=== PATIENT | female | born 1950 | race Caucasian/White ===

== ENCOUNTER 2017-09-10 10:30 | Inpatient (IN) | payer OTHER, MEDICARE ==
[~2017-09-10] VITALS: Ht 160 cm; Wt 0.7 kg
--- NOTE | ~2017-09-10 | H ---
[facility] [place] [address] HISTORY AND PHYSICAL Name: STEPAN GUTIERREZ Room #: 504-2 ADM IN M.R.#: [id number] Admission: 09/10/17 Attend Phys: Gerardo Agosto MD Discharge: Date of : 50 Report #: [id number] THIS REPORT FOR: //name// CC: Gerardo Zheng DATE OF SERVICE: 09/10/2017 HISTORY OF PRESENT ILLNESS: This is a 66-year-old female who has now been admitted to inpatient rehabilitation. She originally presented to [facility]. When she was giving herself a bath at home, lifted her right leg, heard a pop and had sudden severe pain in the right thigh down. She was unable to ambulate that prompted her to the ER, where she was diagnosed with a right femur fracture. She was seen by Orthopedic Surgery and underwent an ORIF on 09/04/2017. She has no weightbearing to that right leg. 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 Postoperatively, she had acute blood loss anemia and did require 5 units of packed red blood cells. She was also noted to have fever up to 101. She reports having sets of blood cultures done. She also had left lower extremity pain and a small increase in edema. She underwent a venous Doppler, which was negative for DVT. She was discharged and now been admitted to inpatient rehab for further therapies prior to returning back to her home. PAST MEDICAL HISTORY: Malignant small cell cancer, malignant neoplasm of the uterus, Meyer syndrome, liver metastasis. PAST SURGICAL HISTORY: , history of hysterectomy, colonoscopy, ventral hernia repair, Port-A-Cath placement, tonsillectomy as a child. ALLERGIES: LATEX, SULFA, GABAPENTIN. CURRENT MEDICATIONS: Amitriptyline 25 mg at bedtime as needed. Tylenol 500 mg every 6 hours as needed. Yudelka 100 mg daily. Lactobacillus 1 capsule twice a day. Omeprazole 20 mg daily. Phenergan 12.5 mg every 6 hours as needed. Vitamin B daily. Multivitamin daily. MiraLax twice a day as needed. Morphine 15 mg every 2 hours as needed, iron 325 three times a day, vitamin D 50,000 units weekly, Lovenox 40 mg subcutaneous twice a day for 9 days. SOCIAL HISTORY: Nonsmoker, nondrinker, no illicit drug use. She lives in a house with her ijrshfw-zl-wao. There are stairs to enter. She utilized a roller walker premorbidly. REVIEW OF SYSTEMS: CONSTITUTIONAL: Denies chills. She does have a fever last night, none reported today. [address] [address] HISTORY AND PHYSICAL Name: STEPAN GUTIERREZ Room #: 504-2 ADM IN M.R.#: [id number] Admission: 09/10/17 Attend Phys: Gerardo Agosto MD Discharge: Date of : 50 Report #: [id number] CHEST: Denies cough, shortness of air. CARDIAC: Denies chest pain or palpitations. ABDOMEN: Denies constipation or pain. She does have some nausea and reported loose stools. GENITOURINARY: Minimal dysuria after Galvan removed approximately 3 hours ago, she has urinated a small amount, she reports. MUSCULOSKELETAL: Pain in the surgical site on the right hip and leg. NEUROLOGIC: Reports numbness and tingling in the lower extremities. PHYSICAL EXAMINATION: GENERAL: She is awake, alert, oriented x 4. She is in no apparent distress, very pleasant. She is on room air. LUNGS: Clear to auscultation bilaterally. No crackle, no wheeze. CARDIOVASCULAR: Regular rate and rhythm. S1, S2. ABDOMEN: Obesity. Bowel sounds positive, soft, nontender, nondistended. GENITOURINARY: Bladder not palpable. EXTREMITIES: 5/5 strength bilateral upper extremities, functional range of motion. Left lower extremity has some proximal pain, but able to lift into gravity. Distal strength 5/5, right lateral thigh and surgical incision with original postop dressing intact. No noted drainage. There is a mild area of proximal incision quarter-sized erythema. Negative Homans sign. Lower extremity dressing, min assist. Toilet, teen max assist. Functional transfers, min to mod. Min assist x 1 for stand pivot transfer. NEUROLOGIC: Decreased sensation bilateral lower extremities. Cranial nerves 2-12 grossly intact. Faces equal and symmetrical. SKIN: Warm, dry. ASSESSMENT: 1. Right femur fracture, status post open reduction internal fixation on 09/04/2017. 2. Gait instability secondary to the above. 3. Acute blood loss anemia. 4. Chemo-induced peripheral neuropathy. 5. 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 6. Arthritis. 7. Possible urinary tract infection. 8. Depression. PLAN: The patient has been admitted to inpatient rehab for both physical and occupational therapies to maximize her functional mobility. Her path report from surgery was consistent with metastatic neuroendocrine cancer. She will follow up with Dr. Alvarado, her oncologist, once she is discharged from rehab and is more stable that she will need an outpatient PET scan at that time. We will need to contact the orthopedic surgeon's office regarding dressing change orders as she has the original dressing intact with vu underneath. We will need to clarify staple removal date. She will be on Lovenox for DVT [facility] [address] [place] [address] HISTORY AND PHYSICAL Name: STEPAN GUTIERREZ Room #: 504-2 ADM IN M.R.#: [id number] Admission: 09/10/17 Attend Phys: Gerardo Agosto MD Discharge: Date of : 50 Report #: [id number] prophylaxis along with a left calf sleeve, SCD at night. She will have lab work drawn in the morning. We will monitor hemoglobin closely. She will remain on the iron. Hospitalist Medicine has been consulted to handle any acute medical issues. <ELECTRONICALLY SIGNED> By: YIFAN Linton 09/17/17 1502 [id number] YIFAN Linton /nt
--- NOTE | ~2017-09-10 | HC ---
[facility] [place] [place] [address] CONSULTATION Name: STEPAN GUTIERREZ Room #: 504-2 ADM IN M.R.#: [id number] Admission: 09/10/17 Attend Phys: Gerardo Agosto MD Discharge: Date of : 50 Report #: [id number] THIS REPORT FOR: //name// CC: Gerardo Zheng DATE OF SERVICE: 09/11/2017 ATTENDING PHYSICIAN: Gerardo Agosto M.D. LOCK MASTER: Ricardo Acuna, PhD. CLINICAL PRESENTATION: The patient is a 66-year-old female admitted to the rehabilitation unit at [facility] for comprehensive inpatient rehabilitation program. She was initially seen at the [facility] where she had suffered a pathological fracture of her right femur. She underwent an ORIF on 09/04/2017. She has a past medical history that includes Meyer syndrome, uterine cancer and is status post chemo and radiation. The patient carries a diagnosis of malignant small cell cancer, malignant neoplasm of the uterus and liver metastasis. A complete description of her medical condition and history can be found in her medical record. Neuropsychological consultation was requested to provide assistance in the assessment of cognitive and emotional status and to provide recommendations and services. Prior to this most recent admission, she was living independently with her [id number]. Her sister several years ago. The patient has 2 living sisters and 2 brothers. She is approximately 30 years ago and has 4 children. Her social support network is good. 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 She is a high school graduate. TECHNIQUES UTILIZED: Clinical interview, review of medical records, staff consultation and behavioral observation, mini mental status exam 2 standard version and clock drawing. EXAMINATION FINDINGS: The patient was alert and cooperative with the assessment. She accurately described events surrounding her admission. There is no evidence of aphasia. Her thoughts are logical and goal oriented. There is no evidence of auditory or visual hallucinations or suicidal ideation. She describes symptoms to include primarily tiredness and fatigue and variability in verbal fluency. Her appetite is described as reduced along with poor energy. Sleep is described as within normal limits. Her performance on the MMSE 2 brief version is within the mild range of impairment with a raw score of 13/16. She was 3/3 for initial registration, 5/5 for orientation to time and place and 0/3 for immediate recall of 3 items after [facility] [address] [place] [address] CONSULTATION Name: STEPAN GUTIERREZ Room #: 504-2 [facility] IN [facility]#: [id number] Admission: 09/10/17 Attend Phys: Gerardo Agosto MD Discharge: Date of : 50 Report #: [id number] a brief time delay and distraction. Performance on the MMSE 2 standard version is within normal limits with a raw score 27/30. Clock drawing is within normal limits. Suggested is mild difficulty with memory. She does not report anxiety or depression. Strong lutheran beliefs assist her in the management of her medical condition with minimal emotional distress. A history of depression is noted in the medical record. DIAGNOSTIC IMPRESSION: Unspecified depressive disorder - by history. RECOMMENDATIONS: There is mild difficulty with cognition that is primarily in regard to incidental memory. Verbal praise and complements about participation in therapy along with assistance in the recognition of sources of support. Cultivation of spirtual beliefs should continue to assist her in adjustment to her medical condition. Thank you very much for allowing me to provide the consultation on this patient. <ELECTRONICALLY SIGNED> By: Ricardo Acuna, PhD 09/16/17 1814 1550 [id number] Ricardo Acuna, PhD /nt
--- NOTE | ~2017-09-10 | H ---
[facility] [place] [address] HISTORY AND PHYSICAL Name: STEPAN GUTIERREZ Room #: 504-2 ADM IN M.R.#: [id number] Admission: 09/10/17 Attend Phys: Gerardo Agosto MD Discharge: Date of : 50 Report #: [id number] THIS REPORT FOR: //name// CC: Gerardo Zheng DATE OF SERVICE: 09/10/2017 GENERAL HISTORY AND PHYSICAL/POST ADMISSION PHYSICIAN EVALUATION HISTORY OF PRESENT ILLNESS: The patient is a 66-year-old white female with history of uterine and colorectal cancer with recent pathologic fracture to the right femur, status post ORIF, who was admitted to [facility] for inpatient rehabilitation. She had been standing in the shower and the fracture happened spontaneously without a fall. She underwent open reduction internal fixation as noted and is limited to nonweightbearing. She has a history of running some low-grade fevers in the evening and has had negative blood cultures. She indicated that this is something that is fairly typical for her. She notes a history of hereditary colorectal cancer. PAST MEDICAL HISTORY: Includes Meyer syndrome or hereditary colorectal cancer. She is noted to have multiple cancers. She follows with Oncology from and the plan is for a PET scan post-discharge. She has had prior uterine cancer and hence a history of small cell rectal cancer. For allergies, medications, review of systems, and further history, please see nurse practitioner's note Mariely Naranjo. SOCIAL HISTORY: She does live with her [id number]-gm-glv. There are 2-3 steps in and the plan is to have that ramped. She premorbidly utilized a roller walker. She does have a daughter closely involved. REVIEW OF SYSTEMS: Did not offer any current complaints of chest pain, shortness of breath or abdominal discomfort. She notes she did have some left lower extremity discomfort over at and they checked x-rays and also checked a venous Doppler study of her left lower extremity, which was noted to be negative. PHYSICAL EXAMINATION: GENERAL: She is a pleasant, overweight white female, in no obvious distress. VITAL SIGNS: Last recorded temperature 37.1, pulse 70, respirations 18, blood pressure 145/62. She is alert, pleasant. HEENT: Appeared to be benign. CRANIAL NERVES: Grossly intact. CHEST: Sounded clear to auscultation. CARDIOVASCULAR: Regular rate and rhythm. [facility] [address] [place] [address] HISTORY AND PHYSICAL Name: STEPAN GUTIERREZ Room #: 504-2 ADM IN .R.#: [id number] Admission: 09/10/17 Attend Phys: Gerardo Agosto MD Discharge: Date of : 50 Report #: [id number] ABDOMEN: Obese, bowel sounds positive, nontender. GENITOURINARY AND RECTAL: Deferred. EXTREMITIES: Functional range of motion of the upper extremity strength is grade 4-/5. Left lower extremity strength is grade 3+ to 4-/5. No focal calf swelling. In the right lower extremity, no focal calf swelling. She has the right lateral thigh incision with dressing in place. She can move that right ankle with strength grade 4-/5 to 3+/5. ASSESSMENT: 1. Right femur pathologic fracture, status post open reduction internal fixation [facility]. 2. History of Meyer syndrome. 3. Small cell rectal cancer. 4. History of uterine cancer. 5. Anemia with transfusion post-ORIF. 6. Gastroesophageal reflux disease. 7. Prophylaxis. She has Lovenox and SCDs. PLAN: Discussed with the daughter and the patient. They note she had the venous Doppler study over at of the left lower extremity, but not the right lower extremity. Some concern was noted regarding her risk for DVT, although she is on the Lovenox and the SCDs. We will go ahead and order a venous Doppler study of that right lower extremity as discussed with the patient and daughter and hold off on therapies pending the results of it. From a postadmission physician evaluation perspective, there are no relevant changes since the preadmission screening. Please see the above review of prior and current medical and functional conditions and comorbidities. Please see the patient's previous and current functional status. As far as risk of complication, she does have the multiple medical comorbidities as noted above. Initial plan of care involves the interdisciplinary acute inpatient rehabilitation program with the goal of maximizing her functional independence. Measurable functional goals would be for her to become modified independent at least at the wheelchair level initially. Prognosis is reasonably good with estimated length of stay probably fairly long as she has had a lower functional level. Potential barriers would include her multiple medical comorbidities and decreased functional status. <ELECTRONICALLY SIGNED> By: Gerardo Agosto MD 09/15/17 1216 [id number] Gerardo Agosto MD /nt
[~2017-09-10 10:30] MED LIST: CENTRUM SILVER1 EAC2 PO; PRILOSEC 20 MG20 MG PO
[2017-09-10] MEDS ORDERED: ENOXAPARIN40 MG/0.1 SUBQ (13:55)
[2017-09-10] MEDS ORDERED: ERGOCALCIF50000 UNIT PO (13:58)
[2017-09-10] MEDS ORDERED: IRON325 PO (13:59)
[2017-09-10] MEDS ORDERED: MIRALAX17 GM PO (14:03)
[2017-09-10] MEDS ORDERED: MORPHINE SULFAT15 M3 PO (14:03)
[2017-09-10] MEDS ORDERED: TYLENOL EXTRA500 MG PO (14:05)
[2017-09-10] MEDS ORDERED: AMITRIPTYLINE H25 M2 PO (14:06)
[2017-09-10] MEDS ORDERED: AMOXICILLIN 50500 MG PO (14:08)
[2017-09-10] MEDS ORDERED: ALLER-EASE180 MG PO (14:09)
[2017-09-10] MEDS ORDERED: CULTURELLE1 EACH PO (14:11)
[2017-09-10] MEDS ORDERED: PRILOSEC 20 MG20 MG PO (14:16)
[2017-09-10] MEDS ORDERED: PHENERGAN12.5 M2 PO (14:20)
[2017-09-10] MEDS ORDERED: UNICOMPLEX M TA1 TA1 PO (14:22)
[2017-09-10] MEDS ORDERED: VITAMIN B COMP1 EAC7 PO (14:22)
[2017-09-10 14:50] VITALS: BP 145/62
[2017-09-10 20:30] VITALS: BP 129/57
[2017-09-11 05:16] LABS: HEMATOCRIT 22.4 % (37.0-47.0); HEMOGLOBIN 7.5 gm/dL (12.0-15.0); MCH 30.2 pg (26.0-34.0); MCHC 33.6 g/dL (28.0-37.0); MCV 89.8 fL (80.0-100.0); RBC 2.5 mil/uL (4.20-5.00); RDW 15.5 % (10.5-14.5); WBC 6.4 thou/uL (4.0-11.0)
[2017-09-11 05:27] LABS: CALCIUM 8.7 mg/dL (8.5-10.1); CREATININE 0.9 mg/dL (0.6-1.0); POTASSIUM 3.5 mmol/L (3.5-5.1)
[2017-09-11 07:30] VITALS: BP 130/71
[2017-09-11 20:00] VITALS: BP 145/77
[2017-09-12 07:30] VITALS: BP 119/58
[2017-09-12 20:00] VITALS: BP 132/64
[2017-09-13 06:09] LABS: ABSOLUTE NEUTROPHILS 5.3 thou/uL (1.4-8.2); BASOPHILS 0.4 % (0.0-2.0); HEMATOCRIT 22.6 % (37.0-47.0); HEMOGLOBIN 7.6 gm/dL (12.0-15.0); LYMPHOCYTES 17.1 % (24.0-44.0); MCH 30.3 pg (26.0-34.0); MCHC 33.5 g/dL (28.0-37.0); MCV 90.5 fL (80.0-100.0); MONOCYTES 5.4 % (1.0-8.0); PLATELET COUNT 274 thou/uL (150-400); POLYS 75.1 % (36.0-66.0); RDW 15.5 % (10.5-14.5); WBC 7.1 thou/uL (4.0-11.0)
[2017-09-13 06:29] LABS: CREATININE 0.9 mg/dL (0.6-1.0); POTASSIUM 3.2 mmol/L (3.5-5.1)
[2017-09-13 08:00] VITALS: BP 122/58
[2017-09-13 15:59] VITALS: BP 131/54
[2017-09-13 19:49] VITALS: BP 123/48
[2017-09-14 07:15] VITALS: BP 119/49
[2017-09-14 19:57] VITALS: BP 114/62
[2017-09-15 06:17] LABS: ABSOLUTE NEUTROPHILS 5.2 thou/uL (1.4-8.2); BASOPHILS 0.4 % (0.0-2.0); EOSINOPHILS 1.8 % (0.0-3.0); HEMATOCRIT 20.9 % (37.0-47.0); LYMPHOCYTES 16.1 % (24.0-44.0); MCH 30.2 pg (26.0-34.0); MCHC 33.7 g/dL (28.0-37.0); MCV 89.9 fL (80.0-100.0); MONOCYTES 6.9 % (1.0-8.0); PLATELET COUNT 269 thou/uL (150-400); POLYS 74.8 % (36.0-66.0); RBC 2.33 mil/uL (4.20-5.00); RDW 15.7 % (10.5-14.5)
[2017-09-15 06:26] LABS: CALCIUM 8.8 mg/dL (8.5-10.1); CREATININE 0.9 mg/dL (0.6-1.0); MAGNESIUM 1.4 mg/dL (1.8-2.4); POTASSIUM 3.5 mmol/L (3.5-5.1)
[2017-09-15 07:45] VITALS: BP 117/50
[2017-09-15 21:17] VITALS: BP 125/57
[2017-09-16 09:05] VITALS: BP 135/61
[2017-09-16 20:29] VITALS: BP 124/61
[2017-09-17 08:00] VITALS: BP 134/65
[2017-09-17 15:32] LABS: ABSOLUTE NEUTROPHILS 6.2 thou/uL (1.4-8.2); BASOPHILS 0.3 % (0.0-2.0); EOSINOPHILS 1.2 % (0.0-3.0); HEMATOCRIT 22.1 % (37.0-47.0); HEMOGLOBIN 7.4 gm/dL (12.0-15.0); LYMPHOCYTES 14.4 % (24.0-44.0); MCH 30.5 pg (26.0-34.0); MCHC 33.7 g/dL (28.0-37.0); MCV 90.7 fL (80.0-100.0); MONOCYTES 5.9 % (1.0-8.0); PLATELET COUNT 319 thou/uL (150-400); POLYS 78.2 % (36.0-66.0); RBC 2.44 mil/uL (4.20-5.00); RDW 16.2 % (10.5-14.5); WBC 7.9 thou/uL (4.0-11.0)
[2017-09-17 19:35] VITALS: BP 127/52
[2017-09-18 03:20] LABS: ABSOLUTE NEUTROPHILS 5.3 thou/uL (1.4-8.2); HEMOGLOBIN 6.9 gm/dL (12.0-15.0); MONOCYTES 7.2 % (1.0-8.0); RBC 2.24 mil/uL (4.20-5.00); RDW 16.2 % (10.5-14.5)
[2017-09-18 03:22] LABS: BASOPHILS 0.4 % (0.0-2.0); EOSINOPHILS 1.9 % (0.0-3.0); HEMATOCRIT 20.3 % (37.0-47.0); LYMPHOCYTES 17.9 % (24.0-44.0); MCH 30.7 pg (26.0-34.0); MCV 90.5 fL (80.0-100.0); PLATELET COUNT 298 thou/uL (150-400); POLYS 72.6 % (36.0-66.0); WBC 7.3 thou/uL (4.0-11.0)
[2017-09-18 03:24] LABS: CALCIUM 8.7 mg/dL (8.5-10.1); MAGNESIUM 1.5 mg/dL (1.8-2.4); POTASSIUM 3.9 mmol/L (3.5-5.1)
[2017-09-18 09:15] VITALS: BP 113/60
[2017-09-18 19:17] VITALS: BP 115/54
[2017-09-19 09:15] VITALS: BP 113/59
[2017-09-19 10:28] LABS: HEMATOCRIT 22.4 % (37.0-47.0); HEMOGLOBIN 7.6 gm/dL (12.0-15.0); MCH 31.1 pg (26.0-34.0); MCV 91.3 fL (80.0-100.0); RBC 2.45 mil/uL (4.20-5.00); RDW 16.7 % (10.5-14.5); WBC 8.2 thou/uL (4.0-11.0)
[2017-09-19 19:56] VITALS: BP 123/50
[2017-09-20 08:09] VITALS: BP 129/67
[2017-09-20 19:11] VITALS: BP 125/50
[2017-09-21 08:00] VITALS: BP 132/61
[2017-09-21 19:26] VITALS: BP 126/47
[2017-09-22 04:13] LABS: ABSOLUTE NEUTROPHILS 5.4 thou/uL (1.4-8.2); BASOPHILS 0.5 % (0.0-2.0); EOSINOPHILS 1.7 % (0.0-3.0); HEMATOCRIT 22.1 % (37.0-47.0); HEMOGLOBIN 7.6 gm/dL (12.0-15.0); LYMPHOCYTES 22.9 % (24.0-44.0); MCHC 34.3 g/dL (28.0-37.0); MCV 90.3 fL (80.0-100.0); MONOCYTES 7.3 % (1.0-8.0); PLATELET COUNT 336 thou/uL (150-400); POLYS 67.6 % (36.0-66.0); RBC 2.45 mil/uL (4.20-5.00); RDW 16.4 % (10.5-14.5)
[2017-09-22 04:18] LABS: CALCIUM 9.2 mg/dL (8.5-10.1); CREATININE 1.1 mg/dL (0.6-1.0); MAGNESIUM 1.5 mg/dL (1.8-2.4); POTASSIUM 4.1 mmol/L (3.5-5.1)
[2017-09-22 08:45] VITALS: BP 132/64
[2017-09-22 14:59] VITALS: BP 132/64
[2017-09-22 19:33] VITALS: BP 130/55
[2017-09-23 06:33] VITALS: BP 132/64
[2017-09-23 07:25] VITALS: BP 111/53
[2017-09-23] MEDS ORDERED: VOLTAREN GEL 1100 G2 TOP (07:55)
[2017-09-23] MEDS ORDERED: CHILDREN'S ASPI81 M1 PO ×2 (08:45→11:16)
[2017-09-23 09:30] VITALS: BP 132/64
[2017-09-23] MEDS ORDERED: VITAMIN B COMP1 EAC7 PO (11:16)
[2017-09-23] MEDS ORDERED: IRON325 PO (11:16)
[2017-09-23] MEDS ORDERED: UNICOMPLEX M TA1 TA1 PO (11:16)
[2017-09-23] MEDS ORDERED: ERGOCALCIF50000 UNIT PO (11:16)
== END 2017-09-23 16:45 | disposition home health service (06) | DRG 543 ==
LOC: ENTRNSPT 09-23 16:47
PROVIDERS: Family Medicine; Hospitalist; Internal Medicine Hematology & Oncology; Nurse Practitioner; Nurse Practitioner Family
DX: M84.451A Pathological fracture, right femur, initial encounter for fracture (principal); D62 Acute posthemorrhagic anemia; K21.9 Gastro-esophageal reflux disease without esophagitis; R26.9 Unspecified abnormalities of gait and mobility; G62.0 Drug-induced polyneuropathy; T45.1X5A Adverse effect of antineoplastic and immunosuppressive drugs, initial encounter; F32.9 Major depressive disorder, single episode, unspecified; N76.0 Acute vaginitis; E87.6 Hypokalemia; M17.12 Unilateral primary osteoarthritis, left knee; E83.42 Hypomagnesemia; Z85.42 Personal history of malignant neoplasm of other parts of uterus; Z85.038 Personal history of other malignant neoplasm of large intestine; Z92.21 Personal history of antineoplastic chemotherapy; Z92.3 Personal history of irradiation; Z90.710 Acquired absence of both cervix and uterus; Z88.2 Allergy status to sulfonamides; Z88.8 Allergy status to other drugs, medicaments and biological substances; Z91.040 Latex allergy status
CPT/HCPCS: 10112

== ENCOUNTER → 2017-09-29 | Outpatient (CLI) | payer OTHER, MEDICARE ==
[~2017-09-29] MED LIST changes: +ALLER-EASE180 MG PO; +AMITRIPTYLINE H25 M2 PO; +AMOXICILLIN 50500 MG PO; +CHILDREN'S ASPI81 M1 PO; +CULTURELLE1 EACH PO; +ENOXAPARIN40 MG/0.1 SUBQ; +ERGOCALCIF50000 UNIT PO; +IRON325 PO; +MIRALAX17 GM PO; +MORPHINE SULFAT15 M3 PO; +PHENERGAN 25 MG25 M1 PO; +TYLENOL EXTRA500 MG PO; +UNICOMPLEX M TA1 TA1 PO; +VITAMIN B COMP1 EAC7 PO; +VOLTAREN GEL 1100 G2 TOP
[2017-09-29 10:12] VITALS: BP 113/40; BP 115/47
[2017-09-29 12:57] VITALS: BP 109/47; BP 114/48; BP 115/47
== END ==
LOC: OPONC 00:18
DX: C80.1 Malignant (primary) neoplasm, unspecified (principal); N93.9 Abnormal uterine and vaginal bleeding, unspecified
CPT/HCPCS: 91030; 95113